=== PATIENT | male | born 1965 | race Caucasian/White ===

== ENCOUNTER 2024-12-11 23:50 | Inpatient (IN) | payer OTHER, SELFPAY ==
[2024-12-12] MEDS ORDERED: hydrALAZINE 20 MG/ML VIAL ONE ×3 (03:42→11:37)
[2024-12-12 04:15] LABS: %Eosinophils 3.2 % (0.0-10.0); %Lymphocytes 29.9 % (21.0-51.0); %Monocytes 6.8 % (0.0-10.0); %Neutrophils 58.7 % (42.0-75.0); Hematocrit 49.4 % (42.0-52.0); Hemoglobin 16.5 g/dL (14.0-18.0); Mean Corpuscular HGB CONC 33.4 g/dL (32.0-36.0); Mean Corpuscular Hemoglobin 29.7 pg (27.0-31.0); Mean Platelet Volume 9.1 fL (7.4-10.4); Platelet Count 360 10x3/uL (130-400); Red Blood Cell (RBC) Count 5.55 mill/uL (4.70-6.10)
[2024-12-12 04:29] LABS: ALT (SGPT) 46 U/L (Less than 45); AST (SGOT) 45 U/L (11-34); Albumin 3.9 g/dL (3.1-4.5); Alkaline Phosphatase 84 U/L (40-110); Anion Gap 12 mmol/L (10-20); BUN (Urea Nitrogen) 11 mg/dL (8.4-25.7); Bilirubin, Total 0.4 mg/dL (0.3-1.2); Calc. Creatinine Clearance 0 mL/min (70-130); Calcium 9.6 mg/dL (7.8-10.44); Carbon Dioxide 27 mmol/L (22-29); Chloride 103 mmol/L (98-107); Estimated GFR 100; Glucose 125 mg/dL (70-105); Lipase 23 U/L (8-78); Magnesium 2.2 mg/dL (1.6-2.6); Protein, Total 7.9 g/dL (6.0-8.3); Sodium 138 mmol/L (136-145)
[2024-12-12 04:33] LABS: Troponin I Less than 0.010 ng/mL (< 0.028)
[2024-12-12] MEDS ORDERED: niCARdipine 25 MG/10 ML SDV ONE (06:11)
[2024-12-12] MEDS ORDERED: Senokot S 8.6-50 MG TAB PO PRN (07:45)
[2024-12-12] MEDS ORDERED: Acetaminophen 325 MG TAB PO PRN (07:45)
[2024-12-12] MEDS ORDERED: Bisacodyl 10 MG SUPP PR PRN (07:45)
[2024-12-12] MEDS ORDERED: Bisacodyl 5 MG TAB PO PRN (07:45)
[2024-12-12] MEDS ORDERED: niCARdipine 25 MG in Sodium Chloride 0.9% 250 ML 250 ML IVPB SCH (08:00)
[2024-12-12 08:13] LABS: Bacteria/HPF None Seen HPF (None Seen); Bilirubin Negative (Negative); Blood, Urine Negative (Negative); CAUTI Indications for Culture Acute Hematuria; Clarity Clear (Clear); Glucose, Urine (Dipstick) Normal (Negative); Ketone, Urine Negative (Negative); Leukocyte Negative Leu/uL (Negative); Nitrite Negative (Negative); Protein, Urine (Dipstick) Negative (Neg-Trace); RBC/HPF 0-3 HPF (0-3); Specific Gravity, Urine 1.008 (1.002-1.036); Squamous Epithelial None Seen HPF (0-3); Urobilinogen Normal mg/dL (Less than 2); WBC/HPF None Seen HPF (0-3); pH, Urine 7.5 (5.0-9.0)
[2024-12-12 08:18] LABS: Urine Culture Reflex No No
[2024-12-12 09:12] LABS: Troponin I Less than 0.010 ng/mL (< 0.028)
[2024-12-12] MEDS ORDERED: Amlodipine 5 MG TAB ONE (09:38)
[2024-12-12] MEDS ORDERED: Acetaminophen 500 MG TAB ONE (09:39)
[2024-12-12] MEDS ORDERED: Aspirin 325 mg Enteric Coated Tablet ONE (09:39)
[2024-12-12] MEDS: Amlodipine 5 MG TAB PO SCH (09:46)
[2024-12-12] MEDS: Acetaminophen 500 MG TAB PO SCH (09:46)
[2024-12-12] MEDS: Aspirin 325 mg Enteric Coated Tablet PO SCH (09:47)
[2024-12-12 10:35] LABS: Amphetamine Not Detected (NotDetected); Barbiturates Screen Not Detected (NotDetected); Benzodiazepine Screen Not Detected (NotDetected); Cocaine Metabolite Screen Not Detected (NotDetected); Methadone Not Detected (NotDetected); Methamphetamine Not Detected (NotDetected); Opiate Screen Not Detected (NotDetected); Oxycodone Screen Not Detected (NotDetected); Phencyclidine (PCP) Not Detected (NotDetected); THC/Cannabinoid Screen Detected (NotDetected); Tricyclic Screen Not Detected (NotDetected)
[2024-12-12] MEDS ORDERED: Labetalol HCl 100 MG/20 ML VIAL SLOW IVP PRN (11:05)
[2024-12-12] MEDS: hydrALAZINE 20 MG/ML VIAL SLOW IVP PRN (11:39)
[2024-12-12 13:33] LABS: Troponin I 0.048 ng/mL (< 0.028)
[2024-12-12] MEDS ORDERED: Promethazine HCl 25 MG/ML VIAL ONE (14:17)
[2024-12-12] MEDS: Promethazine HCl 12.5 MG in Sodium Chloride 0.9% 50 ML IVPB PRN (14:20)
[2024-12-12] MEDS ORDERED: Lisinopril 10 MG TAB ONE (14:25)
[2024-12-12] MEDS: Lisinopril 10 MG TAB PO SCH (14:40)
[2024-12-12] MEDS ORDERED: Labetalol HCl 100 MG/20 ML VIAL ONE (15:16)
[2024-12-12] MEDS: Ondansetron PF 4 MG/2 ML Vial IVP PRN (17:39)
[2024-12-12] MEDS: Sodium Chloride 0.9% 1,000 ML IV SCH (18:00)
[2024-12-12] MEDS ORDERED: Lorazepam 2 MG/ML VIAL IM PRN (18:19)
[2024-12-12] MEDS ORDERED: Lorazepam 1 MG TAB PO PRN (18:19)
[2024-12-12] MEDS ORDERED: Ondansetron ODT 4 MG TAB PO PRN (18:19)
[2024-12-12] MEDS ORDERED: Electrolyte Replacement Protocol 1 EACH FS SCH (18:30)
[2024-12-12] MEDS: Multivit, Therapeutic 1 TAB PO SCH (21:25)
[2024-12-12] MEDS: Folic Acid 1 MG TAB PO SCH (21:25)
[2024-12-12] MEDS: Atorvastatin Calcium 40 MG TAB PO SCH (21:25)
[2024-12-13 03:31] LABS: #Basophils 0.05 10x3/uL (0.0-0.2); %Basophils 0.4 % (0.0-1.0); %Lymphocytes 21.7 % (21.0-51.0); %Monocytes 9.9 % (0.0-10.0); %Neutrophils 66.8 % (42.0-75.0); Hematocrit 46.9 % (42.0-52.0); Hemoglobin 15.9 g/dL (14.0-18.0); Mean Corpuscular HGB CONC 33.9 g/dL (32.0-36.0); Mean Corpuscular Hemoglobin 30.1 pg (27.0-31.0); Mean Corpuscular Volume 88.7 fL (78.0-98.0); Mean Platelet Volume 9.1 fL (7.4-10.4); Platelet Count 360 10x3/uL (130-400); RBC Distribution Width 13.2 % (11.5-14.5); Red Blood Cell (RBC) Count 5.29 mill/uL (4.70-6.10)
[2024-12-13 03:42] LABS: PTT 28.8 sec (22.9-36.1)
[2024-12-13 03:50] LABS: ALT (SGPT) 45 U/L (Less than 45); AST (SGOT) 30 U/L (11-34); Albumin 3.7 g/dL (3.1-4.5); Alkaline Phosphatase 76 U/L (40-110); Anion Gap 15 mmol/L (10-20); BUN (Urea Nitrogen) 11 mg/dL (8.4-25.7); Bilirubin, Direct 0.2 mg/dL (0.1-0.3); Bilirubin, Total 0.7 mg/dL (0.3-1.2); Calc. Creatinine Clearance 116 mL/min (70-130); Carbon Dioxide 22 mmol/L (22-29); Cardiac Risk 4.5 (Less than 4.5); Chloride 104 mmol/L (98-107); Cholesterol 217 mg/dl (< 200 Desired); Estimated GFR 103; Glucose 123 mg/dL (70-105); HDL Cholesterol 48 mg/dL (>60 Neg Risk); Hemoglobin A1c 5.5 % (4.0-6.0); LDL Cholesterol, Calculated 147 mg/dL; Potassium 3.6 mmol/L (3.5-5.1); Protein, Total 7.2 g/dL (6.0-8.3); Sodium 137 mmol/L (136-145); Triglycerides 111 mg/dL (Less than 150)
[2024-12-13 04:05] LABS: HBsAg Index 0.22 S/CO (0-0.99); Hep A IgM AB NONREACTIVE (NonReactive); Hep A IgM S/CO 0.32 S/CO (0-0.79); Hep B Core IgM Index 0.08 S/CO (0-0.79); Hep B Surf Ag NONREACTIVE S/CO (NonReactive); Hep C IgG Ab NONREACTIVE S/CO (NonReactive); Hep C Index 0.07 S/CO (0-0.79); Hepatitis B Core IgM Abs NONREACTIVE S/CO (NonReactive); Thyroid Stimulating Hormone 1.2009 uIU/mL (0.35-4.94)
[2024-12-13 06:35] VITALS: BMI 23.8
[2024-12-13] MEDS: Amlodipine 5 MG TAB PO SCH (08:14)
[2024-12-13] MEDS: Lisinopril 10 MG TAB PO SCH (08:14)
[2024-12-13] MEDS: Aspirin 81 mg Enteric Coated Tablet PO SCH (08:15)
[2024-12-13] MEDS: Magnesium 2 GM/50 ML(in water) 2 GM in Premix 1 BAG IVPB SCH (08:15)
[2024-12-13] MEDS: Enoxaparin 40 MG (0.4 mL) SYRINGE SC SCH (08:15)
[2024-12-13] MEDS: Calcium Carbonate 500 MG ChewTAB PO PRN (10:34)
[2024-12-13] MEDS ORDERED: Lorazepam 1 MG TAB PO PRN (18:19)
[2024-12-14 05:28] LABS: #Basophils 0.09 10x3/uL (0.0-0.2); %Basophils 0.9 % (0.0-1.0); %Eosinophils 2.5 % (0.0-10.0); %Lymphocytes 28.1 % (21.0-51.0); %Monocytes 11.5 % (0.0-10.0); %Neutrophils 56.6 % (42.0-75.0); Hematocrit 49.6 % (42.0-52.0); Hemoglobin 16.2 g/dL (14.0-18.0); Mean Corpuscular HGB CONC 32.7 g/dL (32.0-36.0); Mean Corpuscular Hemoglobin 29.9 pg (27.0-31.0); Mean Corpuscular Volume 91.5 fL (78.0-98.0); Mean Platelet Volume 8.9 fL (7.4-10.4); Platelet Count 342 10x3/uL (130-400); RBC Distribution Width 13.3 % (11.5-14.5); Red Blood Cell (RBC) Count 5.42 mill/uL (4.70-6.10)
[2024-12-14 05:44] LABS: Calcium 8.9 mg/dL (7.8-10.44); Chloride 107 mmol/L (98-107); Potassium 4.2 mmol/L (3.5-5.1); Sodium 137 mmol/L (136-145)
[2024-12-14 05:45] LABS: Glucose 107 mg/dL (70-105)
[2024-12-14 05:46] LABS: Anion Gap 12 mmol/L (10-20); Carbon Dioxide 22 mmol/L (22-29)
[2024-12-14 05:48] LABS: Calc. Creatinine Clearance 101 mL/min (70-130); Estimated GFR 100
[2024-12-14 05:49] LABS: BUN (Urea Nitrogen) 14 mg/dL (8.4-25.7)
[2024-12-14 05:50] LABS: Magnesium 2.3 mg/dL (1.6-2.6)
[2024-12-14] MEDS ORDERED: Iopamidol 370 76% 100 ML VIAL ONE (10:50)
[2024-12-14] MEDS: Amlodipine 5 MG TAB PO SCH (14:43)
[2024-12-14] MEDS: Lisinopril 10 MG TAB PO SCH (14:43)
[2024-12-14] MEDS: hydrALAZINE 25 MG TAB PO SCH (16:09)
[2024-12-14] MEDS ORDERED: Lorazepam 1 MG TAB PO PRN (18:19)
[2024-12-15 04:19] LABS: #Basophils 0.06 10x3/uL (0.0-0.2); %Basophils 0.5 % (0.0-1.0); %Eosinophils 2.4 % (0.0-10.0); %Lymphocytes 21.3 % (21.0-51.0); %Neutrophils 62.3 % (42.0-75.0); Hematocrit 49.2 % (42.0-52.0); Hemoglobin 16.5 g/dL (14.0-18.0); Mean Corpuscular HGB CONC 33.5 g/dL (32.0-36.0); Mean Corpuscular Hemoglobin 29.8 pg (27.0-31.0); Mean Corpuscular Volume 88.8 fL (78.0-98.0); Mean Platelet Volume 9.3 fL (7.4-10.4); Platelet Count 344 10x3/uL (130-400); RBC Distribution Width 13.1 % (11.5-14.5); Red Blood Cell (RBC) Count 5.54 mill/uL (4.70-6.10)
[2024-12-15 05:44] LABS: Anion Gap 17 mmol/L (10-20); BUN (Urea Nitrogen) 11 mg/dL (8.4-25.7); Calc. Creatinine Clearance 89 mL/min (70-130); Calcium 8.7 mg/dL (7.8-10.44); Carbon Dioxide 22 mmol/L (22-29); Chloride 102 mmol/L (98-107); Estimated GFR 88; Glucose 107 mg/dL (70-105); Potassium 3.5 mmol/L (3.5-5.1); Sodium 137 mmol/L (136-145)
[2024-12-15] MEDS: Amlodipine 10 MG TAB PO SCH (08:11)
[2024-12-15] MEDS: Potassium Chloride 20 MEQ TAB PO SCH (08:11)
[2024-12-15] MEDS: Lisinopril 20 MG TAB PO SCH (08:12)
[2024-12-15] MEDS ORDERED: Regadenoson 0.4 MG/5 ML SYRINGE ONE (10:52)
[2024-12-15] MEDS: Magnesium 2 GM/50 ML(in water) 2 GM in Premix 1 BAG IVPB SCH (12:34)
[2024-12-15 16:19] VITALS: BP 161/97; TEMP 97.8
[2024-12-15] MEDS ORDERED: Lorazepam 0.5 MG TAB PO PRN (18:19)
[2024-12-15] MEDS ORDERED: Thiamine 100 MG TAB PO SCH (18:30)
== END 2024-12-15 17:50 | disposition home or self-care (01) | DRG 282 ==
LOC: ERS 23:50 → ERHOLD 12-12 06:54 → CCU 12-12 16:19 → 2NO 12-13 15:06
PROVIDERS: ADMIT Family Medicine; ATTEND Internal Medicine
PROC: HZ2ZZZZ Detoxification Services for Substance Abuse Treatment (ICD-10-PCS; principal; 2024-12-12)
DX: I16.0 Hypertensive urgency (principal); I21.A1 Myocardial infarction type 2; F10.90 Alcohol use, unspecified, uncomplicated; R07.89 Other chest pain; R79.89 Other specified abnormal findings of blood chemistry; I10 Essential (primary) hypertension; E78.5 Hyperlipidemia, unspecified; F12.11 Cannabis abuse, in remission; Z87.891 Personal history of nicotine dependence
CPT/HCPCS: 36415; 70450; 70551; 71045; 71275; 76705; 78452; 80048; 80053; 80061; 80074; 80076; 80306; 81001; 83036; 83690; 83735; 83880; 84443; 84484; 85025; 85610; 85730; 87428; 93005; 93017; 93306; 96365; 96375; 96376; A9502; J0360; J1650; J2405; J2550; J2785; J3475; J7030; Q9967